=== PATIENT | female | born 1995 | race Caucasian/White ===

== ENCOUNTER 2019-02-14 15:03 | Emergency (ER) | payer OTHER ==
[~2019-02-14] VITALS: Ht 165.1 cm; Wt 104.3 kg
[~2019-02-14 15:03] MED LIST: KEFLEX500 MG PO; NOHOMEMEDICATIONS; SERTRALINE HCL50 MG; ULTRAM 50MG TAB50 MG PO; XARELTO20 MG
[2019-02-14] MEDS ORDERED: ADDERALL 30 MG30 MG PO (15:38)
[2019-02-14] MEDS ORDERED: AMBIEN 5 MG TABL5 M1 PO (15:38)
[2019-02-14] MEDS ORDERED: ABILIFY10 MG PO (15:38)
[2019-02-14 16:02] LABS: HEMATOCRIT 41.9 % (37.0-47.0); HEMOGLOBIN 14.3 gm/dL (12.0-15.0); MCH 31.5 pg (26.0-34.0); MCHC 34.1 g/dL (28.0-37.0); MCV 92.2 fL (80.0-100.0); MPV 7.6 fl. (7.2-11.1); RBC 4.55 mil/uL (4.20-5.00); RDW-CV 13.2 % (10.5-14.5)
[2019-02-14 16:14] LABS: POTASSIUM 3.9 mmol/L (3.5-5.1)
[2019-02-14 16:18] LABS: ALBUMIN 3.4 g/dL (3.4-5.0); SALICYLATE < 2.8 mg/dL (2.8-20.0); TOTAL BILIRUBIN 0.2 mg/dL (<0.1-1.0)
[2019-02-14 16:20] LABS: ACETAMINOPHEN < 2 ug/mL (10-30); ALCOHOL < 10 mg/dL (<10)
[2019-02-14 17:07] LABS: URINE BILIRUBIN NEGATIVE (Negative); URINE BLOOD NEGATIVE (Negative); URINE CLARITY CLEAR; URINE COLOR YELLOW; URINE GLUCOSE-RANDOM NEGATIVE (Negative); URINE KETONES NEGATIVE (Negative); URINE LEUKOCYTES NEGATIVE (Negative); URINE NITRITE NEGATIVE (Negative); URINE PROTEIN NEGATIVE (Negative); URINE UROBILINOGEN 0.2 E.U./dl (0.2-1.0)
[2019-02-14 17:30] LABS: AMP/METHAMP POSITIVE (Negative); BARBITURATES Negative (Negative); BENZODIAZEPINES Negative (Negative); COCAINE Negative (Negative); METHADONE Negative (Negative); OPIATES Negative (Negative); PCP Negative (Negative); THC POSITIVE (Negative)
[2019-02-14 23:02] LABS: APTT 25.1 Seconds (25.0-31.3); PROTIME 9.8 Seconds (9.20-11.50)
[2019-02-15 01:00] VITALS: BP 118/68
--- NOTE | 2019-02-15 10:06 | EKG ---
[place] [address] ELECTROCARDIOGRAM REPORT Name: NICOLASANASREENAide Malhotra Room: [facility]#: [id number] Admission: 02/14/19 Attend Phys: Discharge: 02/15/19 Date of : [birth year] Report #: [id number] THIS REPORT FOR: //name// [facility] ED Test Date: 2019-02-14 Test Time: 21:47:20 Pat Name: TIERRA BALDWIN Department: Room: Gender: F Mine Deputy: TOMAS : 1995 Requested By: Anthony Chahal Order Number: [id number] MD: Vasile Ballard Measurements Intervals [place] Rate: 81 P: 35 UT: 127 QRS: 66 QRSD: 112 T: 60 QT: 403 QTc: 468 Interpretive Statements Sinus rhythm early transition Borderline intraventricular conduction delay No previous ECG available for comparison Electronically Signed On 02-15-2019 10:06:08 CDT by Vasile Ballard [email or web address] <ELECTRONICALLY SIGNED> By: Vasile Ballard MD, [facility] 02/15/19 1006 2147 2147 Vasile Ballard MD, FACC /EPI
== END 2019-02-15 01:00 ==
LOC: M.ERS 15:03
PROVIDERS: Family Medicine; Personal Emergency Response Attendant
DX: R45.851 Suicidal ideations (principal); F41.9 Anxiety disorder, unspecified; F31.9 Bipolar disorder, unspecified; F90.9 Attention-deficit hyperactivity disorder, unspecified type; F20.9 Schizophrenia, unspecified; Z91.040 Latex allergy status; Z79.899 Other long term (current) drug therapy

== ENCOUNTER → 2020-09-25 | Outpatient (CLI) | payer OTHER ==
[~2020-09-25] MED LIST changes: +ABILIFY10 MG PO; +ADDERALL 30 MG30 MG PO; +AMBIEN 5 MG TABL5 M1 PO
== END ==
LOC: M.MRI 07:57
PROVIDERS: ATTEND Family Medicine
DX: M25.561 Pain in right knee (principal); G89.29 Other chronic pain

== ENCOUNTER 2020-11-02 08:06 | Emergency (ER) | payer OTHER ==
[~2020-11-02] VITALS: Ht 165.1 cm; Wt 99.8 kg
[2020-11-02] MEDS ORDERED: HYDROXYZINE HCL50 MG PO (08:26)
[2020-11-02] MEDS ORDERED: DESVENLAFAXINE100 MG PO (08:26)
[2020-11-02] MEDS ORDERED: HYDROCODON-ACE1 EAC7 PO (09:38)
[2020-11-02 09:45] VITALS: BP 135/85
== END 2020-11-02 09:45 | disposition home or self-care (01) ==
LOC: M.ERS 08:06
DX: S71.011A Laceration without foreign body, right hip, initial encounter (principal); S71.111A Laceration without foreign body, right thigh, initial encounter; Z91.040 Latex allergy status; W01.0XXA Fall on same level from slipping, tripping and stumbling without subsequent striking against object, initial encounter; Y93.89 Activity, other specified; Y92.89 Other specified places as the place of occurrence of the external cause; Y99.8 Other external cause status